=== PATIENT | male | born 1965 | race African-American/Black ===

== ENCOUNTER 2019-02-07 09:48 | Emergency (ER) | payer MEDICAID ==
[~2019-02-07] VITALS: Ht 182.9 cm; Wt 118.0 kg
[2019-02-07] MEDS ORDERED: ONDANSETRON HCL 4MG/2ML INJ IV STA (10:47)
[2019-02-07] MEDS ORDERED: SODIUM CHLORIDE 0.9% 1,000 ML IV ONE (10:47)
[2019-02-07 10:58] LABS: CLARITY URINE CLEAR (CLEAR); COLOR URINE YELLOW (YELLOW); KETONES URINE NEGATIVE (NEGATIVE); LEUKOCYTE ESTERASE URINE NEGATIVE (NEGATIVE); NITRITE URINE NEGATIVE (NEGATIVE); OCCULT BLOOD URINE NEGATIVE (NEGATIVE); PH URINE 6.5 (4.5-8.0); PROTEIN URINE TRACE (NEGATIVE); SPECIFIC GRAVITY URINE 1.005 (1.005-1.030)
[2019-02-07 11:03] LABS: HEMATOCRIT. 46.3 % (42.0-52.0); HEMOGLOBIN. 15.7 g/dL (14.0-18.0); MEAN CORPUSCULAR HEMOGLOBIN 31.7 pg (28.0-32.0); MEAN CORPUSCULAR VOLUME 93.4 fL (80.0-94.0); MEAN PLATELET VOLUME 7.6 fl (7.4-10.4); PLATELET 91 x1000/uL (130-400); RED BLOOD CELL COUNT 4.96 mill/uL (4.7-6.1); RED CELL DISTRIBUTION WIDTH 14.5 % (11.6-14.6)
[2019-02-07 11:08] LABS: CHLORIDE 107 mEq/L (98-107)
[2019-02-07 11:09] LABS: INR 1.1; PROTHROMBIN TIME 11.7 sec (9.6-11.0)
[2019-02-07 11:11] LABS: ETHANOL BLOOD 145 mg/dL
[2019-02-07] MEDS ORDERED: POTASSIUM CHLORIDE 20MEQ TABLET SR PO ONE (11:30)
[2019-02-07 12:00] LABS: PLATELET ESTIMATE DECREASED
[2019-02-07] MEDS ORDERED: MAGNESIUM 2 G PREMIX 50 ML IV NR (12:15)
[2019-02-07 15:08] VITALS: BP 180/129
[2019-02-07] MEDS ORDERED: IOHEXOL-300 100 ML BOTTLE ONE (15:20)
== END 2019-02-07 15:16 | disposition home or self-care (01) ==
LOC: ER 09:48
DX: R11.2 Nausea with vomiting, unspecified (principal); R19.7 Diarrhea, unspecified; E87.6 Hypokalemia; F10.20 Alcohol dependence, uncomplicated; Y90.6 Blood alcohol level of 120-199 mg/100 ml; K92.1 Melena; K70.0 Alcoholic fatty liver; I10 Essential (primary) hypertension
CPT/HCPCS: 36415; 71045; 74177; 80053; 80320; 81003; 83605; 83690; 83735; 83880; 84484; 85025; 85610; 93005; 96361; 96365; 96375; 99284; J2405; J3475; J7030; Q9967; G0480

== ENCOUNTER 2019-04-09 08:08 | Emergency (ER) | payer SELFPAY ==
[~2019-04-09] VITALS: Ht 180.3 cm; Wt 112.0 kg
[2019-04-09] MEDS ORDERED: PHENYLEPHRINE/SHK LV/MO/PET,WH RECTAL OINT 28GM PR STA (09:47)
[2019-04-09] MEDS ORDERED: ACETAMINOPHEN 325MG TABLET PO ONE (10:00)
[2019-04-09 11:09] VITALS: BP 158/110
== END 2019-04-09 11:20 | disposition home or self-care (01) ==
LOC: ER 08:08
DX: K64.4 Residual hemorrhoidal skin tags (principal); I10 Essential (primary) hypertension
CPT/HCPCS: 99283